=== PATIENT | female | born 1985 | race Two or more races ===

== ENCOUNTER 2021-03-24 08:58 | Emergency (ER) | payer SELFPAY ==
[~2021-03-24] VITALS: Ht 170.2 cm; Wt 81.6 kg
[2021-03-24 09:14] VITALS: BP 143/99
[2021-03-24] MEDS ORDERED: IBUPROFEN 800 MG TAB PO ONE ×2 (09:30→09:32)
== END 2021-03-24 09:43 | disposition home or self-care (01) ==
LOC: ER 08:58
DX: H60.332 Swimmer's ear, left ear (principal)

== ENCOUNTER 2024-08-04 10:57 | Emergency (ER) | payer MEDICAID, OTHER ==
[~2024-08-04] VITALS: Ht 170.2 cm; Wt 79.8 kg
--- NOTE | 2024-08-04 11:22 | ED.PDOC ---
Musculoskeletal HPI Comments 39 year old female presents to the ED with chief complaint of toe pain. Patient reports that she had accidentally stubbed her left 4th toe on her bathtub a week ago, but since then, she has been experiencing increased and persistent pain/swelling to the toe. Patient assumes her toe is fractured, but has not had an XR to confirm it. Patient denies any numbness, weakness, or fall. Time Seen by MD: 11:20 Primary Care Provider: NONE Reviewed Notes: Nurses Notes, Medications, Allergies Allergies: Coded Allergies: NO KNOWN ALLERGIES (Unverified , 03/24/21) Information Source: Patient Mode of Arrival: Ambulatory Location: Left Extremity Location: Toe 4 Timing: Weeks Prehospital treatment: None Severity: Moderate Able to Move Extremity: Yes Bear Weight: Limited Pain: Moderate Mechanism: Jam Circumstances: Accident Onset of Symptoms: After Trauma Symptoms: Swelling, Pain DVT Risk Factors: NONE Last Tetanus: Unknown Past Medical History PAST MEDICAL HISTORY: Denies Surgical History: Denies all surgeries HEALTH AND SAFETY TECHNICIAN History: No Pertinent HEALTH AND SAFETY TECHNICIAN History Family History Family History: Reviewed,noncontributory to illness Social History Smoker: Non-Smoker Alcohol: Occasionally Drugs: Denies Drug Use Lives In: Home Constitutional: denies: chills, diaphoresis, fatigue, fever, malaise, sweats, weakness, others EENTM: denies: blurred vision, double vision, ear bleeding, ear discharge, ear drainage, ear pain, ear ringing, eye pain, eye redness, hearing loss, mouth pain, mouth swelling, nasal discharge, nose bleeding, nose congestion, nose pain, photophobia, tearing, throat pain, throat swelling, voice changes, others Respiratory: denies: cough, hemoptysis, orthopnea, SOB at rest, shortness of breath, SOB with excertion, stridor, wheezing, others Cardiovascular: denies: chest pain, dizzy spells, diaphoresis, Dyspnea on exertion, edema, irregular heart beat, left arm pain, lightheadedness, palpita tions, PND, syncope, others Gastrointestinal: denies: abdomen distended, abdominal pain, blood streaked thomas wels, constipated, diarrhea, dysphagia, difficulty swallowing, hematemesis, melena, nausea, poor appetite, poor fluid intake, rectal bleeding, rectal pain, vomiting, others Genitourinary: denies: abnormal vagina bleeding, burning, dyspareunia, dysuria, flank pain, frequency, hematuria, incontinence, pain, , vagina discharge, urgency, others Neurological: denies: dizziness, fainting, headache, left sided numbness, left sided weakness, numbness, paresthesia, pre-existing deficit, right sided numbness, right sided weakness, seizure, speech problems, tingling, tremors, weakness, others Musculoskeletal: reports: others (Left 4th toe pain and swelling); denies: back pain, gout, joint pain, joint swelling, muscle pain, muscle stiffness, neck pain Integumetry: denies: bruises, change in color, change in hair/nails, dryness, laceration, lesions, lumps, rash, wounds, others Allergic/Immunocompromised: denies: Difficulty Healing, Frequent Infections, Hives, Itching, others Hematologic/Lymphatic: denies: anemia, blood clots, easy bleeding, easy bruising, swollen glands, others Endocrine: denies: excessive hunger, excessive sweating, excessive thirst, excessive urination, flushing, intolerance to cold, intolerance to heat, unexplained weight gain, unexplained weight loss, others Psychiatric: denies: anxiety, bipolar disorder, depression, hopeless, panic disorder, schizophrenia, sleepless, suicidal, others All Other Systems: Reviewed and Negative Physical Exam General Appearance: Moderate Distress, Normal HEENT: Normal ENT Inspection, PERRL/EOMI Neck: Full Range of Motion, Non-Tender, Normal, Normal Inspection Respiratory: Chest Non-Tender, Lungs Clear, No Accessory Muscle Use, No Respiratory Distress, Normal Breath Sounds Cardiovascular: No Edema, No JVD, No Murmur, No Gallop, Normal Peripheral Pulses, Regular Rate/Rhythm Breast Exam: Deferred Gastrointestinal: No Organomegaly, Non Tender, No Pulsatile Mass, Normal Bowel Sounds, Soft Genitalia: Deferred Pelvic: Deferred Rectal: Deferred Extremities: No calf tenderness, Normal capillary refill, Normal range of motion, Non-tender, No pedal edema, Tender (Left 4th toe) Musculoskeletal : Apperance: Normal Neurologic: Alert, compressor operator II-XII nml as Tested, No Motor Deficits, Normal Affect, Normal Mood, No Sensory Deficits Cerebellar Function: Normal Reflexes: Normal Skin: Dry, Normal Color, Warm Peripheral Pulses: 3+ Radial (R), 3+ Radial (L) Lymphatic: No Adenopathy Was a procedure done? Was a procedure done?: No Differential Diagnosis EXT Differential Diagnosis: Fracture, Sprain, Contusion X-Ray, Labs, Meds, VS Vital Signs Date Time Temp Pulse Resp B/P (MAP) Pulse Ox O2 Delivery O2 Flow Rate FiO2 08/04/24 12:15 98.8 90 18 115/75 (88) 98 Lt Foot XR: FINDINGS/IMPRESSION: Oblique fracture fourth proximal phalanx. Patient alert. Complaining of left foot pain. Vitals stable. Answering all questions. Status post trauma to the foot. Has been a week. Placed a splint. Was given prescription of Motrin. X-ray does show fracture of the 4th proximal phalanx. Explained to the patient. Was told to follow up with her primary care physician. Was told to come back if there is any problem. Time of 1ST Reevaluation: 12:20 Reevaluation 1ST: Unchanged Patient Education/Counseling: Diagnosis, Treatment Family Education/Counseling: No Family Present Additional Information The following tests were ordered, and results were reviewed by me: Left foot XR I reviewed and agreed with the following test results read by other providers: Left foot XR I discussed treatment and results with medical personnel. Departure 1 Departure Time of Disposition: 12:49 Impression: Primary Impression: Foot fracture, left Qualified Codes: S92.902A - Unspecified fracture of left foot, initial encounter for closed fracture Disposition: 01 HOME / SELF CARE / HOMELESS Condition: Good Discharged With: Self Critical Care Note Critical Care Time?: No Stability Stability form required: No Heart Score Heart Score: Heart Score Response (Comments) Value History N/A 0 EKG N/A 0 Age N/A 0 Risk Factors N/A 0 Troponin N/A 0 Total 0 I personally scribed for EVARISTO JONES MD ([email or web address]) on 08/04/24 at 11:22. Electronically submitted by Andrew Hua ([email or web address]). I personally scribed for EVAIRSTO JONES MD ([email or web address]) on 08/04/24 at 11:24. Electronically submitted by Andrew Hua ([email or web address]). I personally scribed for EVARISTO JONES MD ([email or web address]) on 08/04/24 at 12:23. Electronically submitted by Andrew Hua ([email or web address]). EVARISTO JONES MD Aug 04, 2024 11:22
--- NOTE | 2024-08-04 11:56 | DVH ---
CLINICAL INDICATION: fall TECHNIQUE: XY L FOOT 2 VIEW XRAY Comparison: None FINDINGS/IMPRESSION: Oblique fracture fourth proximal phalanx.
[2024-08-04 13:38] VITALS: BP 115/62; PULSE 95; RESP 18; TEMP 97.8; O2SAT 96
[2024-08-04] MEDS: HYDROcodone-ACET 5/325MG TAB PO ONE (13:38)
== END 2024-08-04 14:03 | disposition home or self-care (01) ==
LOC: ER 10:57
DX: S92.902A Unspecified fracture of left foot, initial encounter for closed fracture (principal); W22.8XXA Striking against or struck by other objects, initial encounter; Y93.9 Activity, unspecified; Y92.091 Bathroom in other non-institutional residence as the place of occurrence of the external cause; Y99.8 Other external cause status
CPT/HCPCS: 29515; 73620

== ENCOUNTER 2024-08-06 15:27 | Emergency (ER) | payer MEDICAID ==
[~2024-08-06] VITALS: Ht 170.2 cm; Wt 80.9 kg
--- NOTE | 2024-08-06 16:25 | ED.PDOC ---
Musculoskeletal HPI Comments 39-year-old female here today for splint re-application. Patient states she was seen on Tuesday for a toe fracture of her left foot 4th toe. Posterior short-leg splint was applied and patient was given crutches. States over the last three or four days she was noticed her toes are not supported by the splint anymore. Patient was denies any increasing pain. Chief Complaint: Lower Extremity Time Seen by MD: 16:09 Primary Care Provider: NONE Reviewed Notes: Nurses Notes Allergies: Coded Allergies: NO KNOWN ALLERGIES (Unverified , 03/24/21) Information Source: Patient Mode of Arrival: Ambulatory Location: Left Extremity Location: Toe 4 Past Medical History PAST MEDICAL HISTORY: Denies Surgical History: Denies all surgeries HEALTH CARE LEGAL ASSISTANT History: No Pertinent HEALTH CARE LEGAL ASSISTANT History Family History Family History: Reviewed,noncontributory to illness Social History Smoker: Non-Smoker Alcohol: Occasionally Drugs: Denies Drug Use Lives In: Home Constitutional: denies: chills, diaphoresis, fatigue, fever, malaise, sweats, weakness, others EENTM: denies: blurred vision, double vision, ear bleeding, ear discharge, ear drainage, ear pain, ear ringing, eye pain, eye redness, hearing loss, mouth pain, mouth swelling, nasal discharge, nose bleeding, nose congestion, nose pain, photophobia, tearing, throat pain, throat swelling, voice changes, others Respiratory: denies: cough, hemoptysis, orthopnea, SOB at rest, shortness of breath, SOB with excertion, stridor, wheezing, others Cardiovascular: denies: chest pain, dizzy spells, diaphoresis, Dyspnea on exertion, edema, irregular heart beat, left arm pain, lightheadedness, palpitations, PND, syncope, others Gastrointestinal: denies: abdomen distended, abdominal pain, blood streaked bowels, constipated, diarrhea, dysphagia, difficulty swallowing, hematemesis, melena, nausea, poor appetite, poor fluid intake, rectal bleeding, rectal pain, vomiting, others Genitourinary: denies: abnormal vagina bleeding, burning, dyspareunia, dysuria, flank pain, frequency, hematuria, incontinence, pain, , vagina discharge, urgency, others Neurological: denies: dizziness, fainting, headache, left sided numbness, left sided weakness, numbness, paresthesia, pre-existing deficit, right sided numbness, right sided weakness, seizure, speech problems, tingling, tremors, weakness, others Musculoskeletal: denies: back pain, gout, joint pain, joint swelling, muscle pain, muscle stiffness, neck pain, others Integumetry: denies: bruises, change in color, change in hair/nails, dryness, laceration, lesions, lumps, rash, wounds, others Allergic/Immunocompromised: denies: Difficulty Healing, Frequent Infections, Hives, Itching, others Hematologic/Lymphatic: denies: anemia, blood clots, easy bleeding, easy bruising, swollen glands, others Physical Exam General Appearance: No Apparent Distress, Normal HEENT: Normal ENT Inspection, Pharynx Normal, TMs Normal Neck: Full Range of Motion, Non-Tender, Normal, Normal Inspection Respiratory: Chest Non-Tender, Lungs Clear, No Accessory Muscle Use, No Respiratory Distress, Normal Breath Sounds Cardiovascular: No Edema, No JVD, No Murmur, No Gallop, Normal Peripheral Pulses, Regular Rate/Rhythm Breast Exam: Deferred Gastrointestinal: No Organomegaly, Non Tender, No Pulsatile Mass, Normal Bowel Sounds, Soft Genitalia: Deferred Pelvic: Deferred Rectal: Deferred Extremities: No calf tenderness, Normal capillary refill, No pedal edema, Other (Bruising noted to the left foot 4th toe. Positive swelling. 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 Was a procedure done?: No Differential Diagnosis EXT Differential Diagnosis: Fracture X-Ray, Labs, Meds, VS Vital Signs Date Time Temp Pulse Resp B/P (MAP) Pulse Ox O2 Delivery O2 Flow Rate FiO2 08/06/24 16:12 98.2 100 18 123/63 (83) 100 X-Ray, Labs, Meds, VS Comment Splint was removed and abran tape was applied to the 3rd and 4th toe. Patient was placed in a postop shoe. Advised to continue using crutches and follow up with network operations specialist as previously instructed. Patient verbalized understanding. Time of 1ST Reevaluation: 16:24 Reevaluation 1ST: Improved Patient Education/Counseling: Diagnosis, Treatment, Need For Follow Up (Follow up with network operations specialist in next 5-7 days.) Family Education/Counseling: Diagnosis, Treatment Departure 1 Departure Time of Disposition: 16:24 Impression: Primary Impression: Foot fracture, left Qualified Codes: S92.902A - Unspecified fracture of left foot, initial encounter for closed fracture Disposition: 01 HOME / SELF CARE / HOMELESS Condition: Fair Discharged With: Self Critical Care Note Critical Care Time?: No Stability Stability form required: No Heart Score Heart Score: Heart Score Response (Comments) Value History N/A 0 EKG N/A 0 Age N/A 0 Risk Factors N/A 0 Troponin N/A 0 Total 0 TERRANCE DON Aug 06, 2024 16:25
[2024-08-06 16:38] VITALS: BP 152/44; PULSE 96; RESP 18; O2SAT 95
== END 2024-08-06 16:47 | disposition home or self-care (01) ==
LOC: ER 15:27
DX: S92.502D Displaced unspecified fracture of left lesser toe(s), subsequent encounter for fracture with routine healing (principal); X58.XXXD Exposure to other specified factors, subsequent encounter